=== PATIENT | female | born 1950 | race Caucasian/White ===

== ENCOUNTER 2023-01-18 17:13 | Inpatient (IN) | payer MEDICARE ==
[~2023-01-18] VITALS: Ht 157.5 cm; Wt 49.9 kg
[2023-01-18] MEDS ORDERED: OLANZAPINE 10 MG VIAL IM ONE ×2 (17:30→18:11)
[2023-01-18] MEDS ORDERED: INSU100I28 SQ (17:47)
[2023-01-18] MEDS ORDERED: CARV6.25 PO (17:47)
[2023-01-18] MEDS ORDERED: QUET25TA PO (17:47)
[2023-01-18] MEDS ORDERED: ACET-868 PO (17:47)
[2023-01-18] MEDS ORDERED: ACET650S11 RC (17:47)
[2023-01-18] MEDS ORDERED: IPRA3AMP22 IH (17:47)
[2023-01-18] MEDS ORDERED: CLON0.1T PO (17:47)
[2023-01-18] MEDS ORDERED: INSU100I30 SQ (17:47)
[2023-01-18] MEDS ORDERED: GLUC1KIT IM (17:47)
[2023-01-18] MEDS ORDERED: AMLO10TA4 PO (17:47)
[2023-01-18] MEDS ORDERED: ATRO2DRO4 SL (17:47)
[2023-01-18] MEDS ORDERED: ONDA8TAB65 PO (17:47)
[2023-01-18 18:30] LABS: BASOPHILS # (AUTO) 0.1 K/uL (0.0-0.2); BASOPHILS % (AUTO) 0.7 % (0.0-2.0); CALCIUM, SERUM 9.6 mg/dL (8.5-10.1); CARBON DIOXIDE 20 mmol/L (21-32); CHLORIDE 106 mmol/L (98-107); EOSINOPHILS # (AUTO) 0.4 K/uL (0.0-0.7); GLUCOSE 117 mg/dL (74-106); HEMATOCRIT 39 % (33-45); HEMOGLOBIN 12.9 g/dL (11.5-14.8); LYMPHOCYTES # (AUTO) 2.8 K/uL (0.8-4.8); LYMPHOCYTES % (AUTO) 22.4 % (20.0-44.0); MEAN CORPUSCULAR HEMOGLOBIN 31 PG (26.0-33.0); MEAN CORPUSCULAR HGB CONC 33 g/dl (31.0-36.0); MEAN CORPUSCULAR VOLUME 94 fL (82-100); MONOCYTES # (AUTO) 0.9 K/uL (0.1-1.30); MONOCYTES % (AUTO) 7.1 % (2.0-12.0); NEUTROPHILS # (AUTO) 8.3 K/uL (1.8-8.9); NEUTROPHILS % (AUTO) 66.8 % (43.0-81.0); PLATELET COUNT (AUTO) 342 K/uL (150-450); POTASSIUM 3.8 mmol/L (3.5-5.1); RED CELL DISTRIBUTION WIDTH 13.4 % (11.5-15.0); SODIUM SERUM 139 mmol/L (136-145); UREA NITROGEN, BLOOD 23 mg/dL (7-18); WHITE BLOOD COUNT (AUTO) 12.4 K/uL (4.3-11.0)
[2023-01-18 18:37] LABS: ALANINE AMINOTRANSFERASE 11 U/L (12-78); ALBUMIN 3.1 g/dL (3.4-5.0); ALKALINE PHOSPHATASE 117 U/L (46-116); ASPARTATE AMINOTRANSFERASE 15 U/L (15-37); BILIRUBIN,DIRECT 0.1 mg/dL (0.0-0.2); BILIRUBIN,TOTAL 0.2 mg/dL (0.2-1.0); TOTAL PROTEIN, SERUM 7.4 g/dL (6.4-8.2)
[2023-01-18 18:38] LABS: SALICYLATE < 2.3 mg/dL (2.8-20.0)
[2023-01-18 18:39] LABS: ACETAMINOPHEN <10 ug/ml (10-30); ALCOHOL, BLOOD < 3 mg/dL (0-10)
[2023-01-18 19:21] LABS: APPEARANCE,URINE CLOUDY (CLEAR); COLOR,URINE YELLOW (YELLOW)
[2023-01-18 19:22] LABS: PH,URINE 6.5 (5.0-8.0); PROTEIN,URINE 1+ mg/dl (NEGATIVE); UGLUCOSE NEGATIVE (NEGATIVE)
[2023-01-18 19:23] LABS: BILIRUBIN,URINE NEGATIVE (NEGATIVE); BLOOD, URINE 2+ Ery/uL (NEGATIVE); KETONES,URINE NEGATIVE (NEGATIVE); LEUKOCYTE ESTERASE ,URINE 3+ (NEGATIVE); NITRITE, URINE POSITIVE (NEGATIVE); UROBILINOGEN,URINE 0.2 EU/dL (0.2)
[2023-01-18 19:24] LABS: AMPHETAMINE, URINE NEGATIVE (NEGATIVE); BARBITURATE, URINE NEGATIVE (NEGATIVE); BENZODIAZEPINE, URINE NEGATIVE (NEGATIVE); CANNABINOID, URINE NEGATIVE (NEGATIVE); COCCAINE, URINE NEGATIVE (NEGATIVE); OPIATE, URINE NEGATIVE (NEGATIVE); PHENCYCLIDINE SCREEN,URINE NEGATIVE (NEGATIVE)
[2023-01-18 19:29] LABS: ADD URINE CULTURE YES; BACTERIA,URINE 3+ /HPF (None Seen); RBC,URINE 21-50 /HPF (0-2); SQUAMOUS EPITHELIAL CELL,UR 0-2 /HPF (None Seen); WBC,URINE 51-80 /HPF (0-3)
[2023-01-18] MEDS ORDERED: CEFTRIAXONE 1GM BAG (ER ONLY) 1 GM/50 ML PIGGYBACK IV ONE (20:00)
[2023-01-18 22:30] VITALS: BP 128/89; TEMP 97.4; O2SAT 98
[2023-01-18] MEDS ORDERED: MAGNESIUM HYDROXIDE 30 ML UDC PO PRN (23:00)
[2023-01-18] MEDS ORDERED: BLOOD SUGAR DIAGNOSTIC 1 EACH STRIP IN ONE (23:00)
[2023-01-18] MEDS ORDERED: MAG HYDROX/AL HYDROX/SIMETH 30 ML UDC PO PRN (23:00)
[2023-01-19] MEDS ORDERED: ACETAMINOPHEN 325 MG TABLET PO PRN (00:30)
[2023-01-19] MEDS ORDERED: DEXTROSE 50%-WATER 50 ML DISP.SYRIN IV PRN (00:30)
[2023-01-19] MEDS ORDERED: CLONIDINE HCL 0.1 MG TABLET PO PRN (00:30)
[2023-01-19] MEDS ORDERED: ACETAMINOPHEN 650 MG/SUPP.RECT RC PRN (00:30)
[2023-01-19] MEDS ORDERED: ATROPINE SULFATE OPHTH SOLN 15 ML BOTTLE SL PRN (00:30)
[2023-01-19] MEDS ORDERED: ONDANSETRON 4 MG TAB.RAPDIS PO PRN (01:00)
[2023-01-19] MEDS ORDERED: GLUCAGON,HUMAN RECOMBINANT 1 MG/VIAL VIAL IM PRN (07:30)
[2023-01-19] MEDS: ALBUTEROL FS 2.5 MG/0.5 ML VIAL.NEB NEB SCH ×3 (07:35→23:30)
[2023-01-19] MEDS: IPRATROPIUM NEB FS 0.5 MG/2.5 ML AMPUL.NEB IH SCH ×3 (07:35→23:30)
[2023-01-19] MEDS: BLOOD SUGAR DIAGNOSTIC 1 EACH STRIP VI SCH ×4 (07:49→21:49)
[2023-01-19 08:00] VITALS: BP 106/57; TEMP 98; O2SAT 97
[2023-01-19 08:10] LABS: CHOLESTEROL 203 mg/dL (<200); HDL CHOLESTEROL 33 mg/dL (40-60); LDL 132 mg/dL (0-99); TRIGLYCERIDES 180 mg/dL (30-150)
[2023-01-19] MEDS: CEPHALEXIN MONOHYDRATE 500 MG CAPSULE PO SCH ×2 (08:51→16:54)
[2023-01-19] MEDS: CARVEDILOL 6.25 MG TABLET PO SCH ×2 (08:52→20:30)
[2023-01-19] MEDS: AMLODIPINE BESYLATE 10 MG TABLET PO SCH (08:53)
[2023-01-19] MEDS ORDERED: Medication Not On Formulary EA (Ipratropium/Albuterol Sulfate (Ipratr-Albuterol 0.5-3 Mg IH SCH (09:00)
[2023-01-19 09:15] LABS: CREATININE 1.2 mg/dL (0.6-1.3)
[2023-01-19] MEDS: INSULIN REGULAR, HUMAN 100 UNIT/ML 3 ML VIAL SQ PRN (12:08)
[2023-01-19 16:00] VITALS: BP 148/67; TEMP 98.7; O2SAT 98
[2023-01-19 20:18] VITALS: BP 122/59; TEMP 98; O2SAT 98
[2023-01-19] MEDS: INSULIN GLARGINE, 100 UNIT/ML CARTRIDGE SQ SCH (21:53)
[2023-01-19] MEDS ORDERED: QUETIAPINE FUMARATE 25 MG TABLET PO SCH (22:00)
[2023-01-19] MEDS: LORAZEPAM 0.5 MG TABLET PO PRN (22:36)
[2023-01-20] MEDS: ALBUTEROL FS 2.5 MG/0.5 ML VIAL.NEB NEB SCH ×3 (07:35→23:21)
[2023-01-20] MEDS: IPRATROPIUM NEB FS 0.5 MG/2.5 ML AMPUL.NEB IH SCH ×3 (07:35→23:21)
[2023-01-20] MEDS: BLOOD SUGAR DIAGNOSTIC 1 EACH STRIP VI SCH ×4 (07:58→21:46)
[2023-01-20 08:00] VITALS: BP 94/53; TEMP 98.7; O2SAT 97
[2023-01-20] MEDS: INSULIN REGULAR, HUMAN 100 UNIT/ML 3 ML VIAL SQ PRN ×3 (08:00→17:10)
[2023-01-20] MEDS: CEPHALEXIN MONOHYDRATE 500 MG CAPSULE PO SCH ×2 (08:46→17:10)
[2023-01-20] MEDS: CARVEDILOL 6.25 MG TABLET PO SCH ×2 (08:46→21:44)
[2023-01-20] MEDS: AMLODIPINE BESYLATE 10 MG TABLET PO SCH (08:46)
[2023-01-20] MEDS: ACETAMINOPHEN 325 MG TABLET PO PRN (14:41)
[2023-01-20] MEDS: LORAZEPAM 0.5 MG TABLET PO PRN (14:41)
[2023-01-20 16:00] VITALS: BP 114/63; TEMP 98.1; O2SAT 98
[2023-01-20 20:00] VITALS: BP 137/75; TEMP 98.3; O2SAT 98
[2023-01-20] MEDS: QUETIAPINE FUMARATE 25 MG TABLET PO SCH (21:46)
[2023-01-20] MEDS: INSULIN GLARGINE, 100 UNIT/ML CARTRIDGE SQ SCH (21:46)
[2023-01-21] MEDS: ALBUTEROL FS 2.5 MG/0.5 ML VIAL.NEB NEB SCH ×3 (07:27→23:30)
[2023-01-21] MEDS: IPRATROPIUM NEB FS 0.5 MG/2.5 ML AMPUL.NEB IH SCH ×3 (07:27→23:30)
[2023-01-21] MEDS: BLOOD SUGAR DIAGNOSTIC 1 EACH STRIP VI SCH ×4 (07:35→21:30)
[2023-01-21 08:00] VITALS: BP 130/62; TEMP 98.2; O2SAT 98
[2023-01-21] MEDS: AMLODIPINE BESYLATE 10 MG TABLET PO SCH (08:11)
[2023-01-21] MEDS: CARVEDILOL 6.25 MG TABLET PO SCH ×2 (08:11→20:41)
[2023-01-21] MEDS: CEPHALEXIN MONOHYDRATE 500 MG CAPSULE PO SCH ×2 (08:11→16:31)
[2023-01-21] MEDS: INSULIN REGULAR, HUMAN 100 UNIT/ML 3 ML VIAL SQ PRN (12:09)
[2023-01-21 16:00] VITALS: BP 123/93; TEMP 97.9; O2SAT 99
[2023-01-21 19:58] VITALS: BP 130/88; TEMP 97.6; O2SAT 97
[2023-01-21] MEDS: QUETIAPINE FUMARATE 25 MG TABLET PO SCH (21:29)
[2023-01-21] MEDS: INSULIN GLARGINE, 100 UNIT/ML CARTRIDGE SQ SCH (21:30)
[2023-01-21] MEDS: *INSULIN REGULAR(HUMULIN R)HUM 100 UNIT/ML VIAL SQ PRN (21:34)
[2023-01-22] MEDS ORDERED: Z GUARD REMEDY 4 OZ OINT TP PRN (06:00)
[2023-01-22] MEDS: BLOOD SUGAR DIAGNOSTIC 1 EACH STRIP VI SCH ×4 (06:41→22:05)
[2023-01-22] MEDS: IPRATROPIUM NEB FS 0.5 MG/2.5 ML AMPUL.NEB IH SCH ×3 (07:35→23:18)
[2023-01-22] MEDS: ALBUTEROL FS 2.5 MG/0.5 ML VIAL.NEB NEB SCH ×3 (07:35→23:18)
[2023-01-22 08:00] VITALS: BP 109/50; TEMP 98.2; O2SAT 98
[2023-01-22] MEDS: CARVEDILOL 6.25 MG TABLET PO SCH ×2 (08:37→21:16)
[2023-01-22] MEDS: CEPHALEXIN MONOHYDRATE 500 MG CAPSULE PO SCH ×2 (08:37→16:43)
[2023-01-22] MEDS: AMLODIPINE BESYLATE 10 MG TABLET PO SCH (08:38)
[2023-01-22] MEDS: Z GUARD REMEDY 4 OZ OINT TP SCH (09:09)
[2023-01-22 16:00] VITALS: BP 129/85; TEMP 98.9; O2SAT 100
[2023-01-22] MEDS: INSULIN REGULAR, HUMAN 100 UNIT/ML 3 ML VIAL SQ PRN (16:57)
[2023-01-22 20:00] VITALS: BP 121/58; TEMP 97.7; O2SAT 98
[2023-01-22 22:00] VITALS: BP 149/70
[2023-01-22] MEDS: INSULIN GLARGINE, 100 UNIT/ML CARTRIDGE SQ SCH (22:07)
[2023-01-22] MEDS: *INSULIN REGULAR(HUMULIN R)HUM 100 UNIT/ML VIAL SQ PRN (22:10)
[2023-01-22] MEDS: QUETIAPINE FUMARATE 25 MG TABLET PO SCH (22:12)
[2023-01-23] MEDS: BLOOD SUGAR DIAGNOSTIC 1 EACH STRIP VI SCH ×4 (07:33→21:23)
[2023-01-23] MEDS: ALBUTEROL FS 2.5 MG/0.5 ML VIAL.NEB NEB SCH ×3 (07:35→23:30)
[2023-01-23] MEDS: IPRATROPIUM NEB FS 0.5 MG/2.5 ML AMPUL.NEB IH SCH ×3 (07:35→23:30)
[2023-01-23 08:00] VITALS: BP 129/65; TEMP 98; O2SAT 96
[2023-01-23] MEDS: CEPHALEXIN MONOHYDRATE 500 MG CAPSULE PO SCH (08:49)
[2023-01-23] MEDS: AMLODIPINE BESYLATE 10 MG TABLET PO SCH (08:49)
[2023-01-23] MEDS: CARVEDILOL 6.25 MG TABLET PO SCH ×2 (08:49→20:20)
[2023-01-23] MEDS: Z GUARD REMEDY 4 OZ OINT TP SCH (08:50)
[2023-01-23] MEDS: INSULIN REGULAR, HUMAN 100 UNIT/ML 3 ML VIAL SQ PRN (11:55)
[2023-01-23 16:00] VITALS: BP 131/62; TEMP 97.6; O2SAT 96
[2023-01-23 20:00] VITALS: BP 120/71; TEMP 98.2; O2SAT 98
[2023-01-23] MEDS: QUETIAPINE FUMARATE 25 MG TABLET PO SCH (21:23)
[2023-01-23] MEDS: INSULIN GLARGINE, 100 UNIT/ML CARTRIDGE SQ SCH (21:23)
[2023-01-24] MEDS: ALBUTEROL FS 2.5 MG/0.5 ML VIAL.NEB NEB SCH ×3 (07:35→23:30)
[2023-01-24] MEDS: IPRATROPIUM NEB FS 0.5 MG/2.5 ML AMPUL.NEB IH SCH ×3 (07:35→23:30)
[2023-01-24] MEDS: BLOOD SUGAR DIAGNOSTIC 1 EACH STRIP VI SCH ×5 (07:52→21:21)
[2023-01-24 08:00] VITALS: BP 132/64; TEMP 97.8; O2SAT 100
[2023-01-24] MEDS: AMLODIPINE BESYLATE 10 MG TABLET PO SCH (08:25)
[2023-01-24] MEDS: CARVEDILOL 6.25 MG TABLET PO SCH ×2 (08:26→21:12)
[2023-01-24] MEDS: Z GUARD REMEDY 4 OZ OINT TP SCH (08:37)
[2023-01-24] MEDS: INSULIN REGULAR, HUMAN 100 UNIT/ML 3 ML VIAL SQ PRN (11:19)
[2023-01-24 16:00] VITALS: BP 103/59; TEMP 98.1; O2SAT 96
[2023-01-24 20:00] VITALS: BP 113/93; TEMP 97.7; O2SAT 97
[2023-01-24] MEDS: QUETIAPINE FUMARATE 25 MG TABLET PO SCH (21:12)
[2023-01-24] MEDS: TEMAZEPAM 7.5 MG CAPSULE PO PRN (21:46)
[2023-01-24] MEDS: INSULIN GLARGINE, 100 UNIT/ML CARTRIDGE SQ SCH (22:12)
[2023-01-24] MEDS: *INSULIN REGULAR(HUMULIN R)HUM 100 UNIT/ML VIAL SQ PRN (22:16)
[2023-01-25] MEDS: IPRATROPIUM NEB FS 0.5 MG/2.5 ML AMPUL.NEB IH SCH ×3 (07:35→23:30)
[2023-01-25] MEDS: ALBUTEROL FS 2.5 MG/0.5 ML VIAL.NEB NEB SCH ×3 (07:35→23:30)
[2023-01-25] MEDS: BLOOD SUGAR DIAGNOSTIC 1 EACH STRIP VI SCH ×4 (07:44→21:01)
[2023-01-25 08:00] VITALS: BP 101/52; TEMP 97.7; O2SAT 98
[2023-01-25] MEDS: CARVEDILOL 6.25 MG TABLET PO SCH ×2 (08:32→20:39)
[2023-01-25] MEDS: Z GUARD REMEDY 4 OZ OINT TP SCH (08:34)
[2023-01-25] MEDS: AMLODIPINE BESYLATE 10 MG TABLET PO SCH (08:35)
[2023-01-25] MEDS: DIVALPROEX SODIUM 125 MG CAP.SPRINK PO SCH ×2 (14:06→20:39)
[2023-01-25] MEDS: QUETIAPINE FUMARATE 25 MG TABLET PO SCH ×3 (14:06→21:01)
[2023-01-25 16:00] VITALS: BP 117/76; TEMP 98.7; O2SAT 96
[2023-01-25] MEDS: INSULIN REGULAR, HUMAN 100 UNIT/ML 3 ML VIAL SQ PRN (18:12)
[2023-01-25 20:49] VITALS: BP 129/64; TEMP 98.2; O2SAT 96
[2023-01-25] MEDS: INSULIN GLARGINE, 100 UNIT/ML CARTRIDGE SQ SCH (21:57)
[2023-01-26] MEDS: IPRATROPIUM NEB FS 0.5 MG/2.5 ML AMPUL.NEB IH SCH ×3 (07:05→23:30)
[2023-01-26] MEDS: ALBUTEROL FS 2.5 MG/0.5 ML VIAL.NEB NEB SCH ×3 (07:05→23:30)
[2023-01-26 08:00] VITALS: BP 107/54; TEMP 98.7; O2SAT 97
[2023-01-26] MEDS: BLOOD SUGAR DIAGNOSTIC 1 EACH STRIP VI SCH ×4 (08:03→22:00)
[2023-01-26] MEDS: QUETIAPINE FUMARATE 25 MG TABLET PO SCH ×3 (08:08→21:16)
[2023-01-26] MEDS: DIVALPROEX SODIUM 125 MG CAP.SPRINK PO SCH ×2 (08:08→21:15)
[2023-01-26] MEDS: AMLODIPINE BESYLATE 10 MG TABLET PO SCH (08:09)
[2023-01-26] MEDS: CARVEDILOL 6.25 MG TABLET PO SCH ×2 (08:09→21:15)
[2023-01-26] MEDS: Z GUARD REMEDY 4 OZ OINT TP SCH (08:10)
[2023-01-26] MEDS: *INSULIN REGULAR(HUMULIN R)HUM 100 UNIT/ML VIAL SQ PRN ×3 (12:08→22:06)
[2023-01-26 16:00] VITALS: BP 121/60; TEMP 97.7; O2SAT 97
[2023-01-26 16:07] VITALS: BP 121/60; TEMP 97.7; O2SAT 97
[2023-01-26 20:28] VITALS: BP 117/56; TEMP 98.4; O2SAT 99
[2023-01-26] MEDS: TEMAZEPAM 7.5 MG CAPSULE PO PRN (22:00)
[2023-01-26] MEDS: INSULIN GLARGINE, 100 UNIT/ML CARTRIDGE SQ SCH (22:05)
[2023-01-27] MEDS: ALBUTEROL FS 2.5 MG/0.5 ML VIAL.NEB NEB SCH ×3 (07:35→23:30)
[2023-01-27] MEDS: IPRATROPIUM NEB FS 0.5 MG/2.5 ML AMPUL.NEB IH SCH ×3 (07:35→23:30)
[2023-01-27 08:00] VITALS: BP 100/47; TEMP 98.7; O2SAT 98
[2023-01-27] MEDS: BLOOD SUGAR DIAGNOSTIC 1 EACH STRIP VI SCH ×4 (08:24→21:39)
[2023-01-27] MEDS: DIVALPROEX SODIUM 125 MG CAP.SPRINK PO SCH ×2 (08:24→21:27)
[2023-01-27] MEDS: CARVEDILOL 6.25 MG TABLET PO SCH ×2 (08:24→21:27)
[2023-01-27] MEDS: AMLODIPINE BESYLATE 10 MG TABLET PO SCH (08:25)
[2023-01-27] MEDS: Z GUARD REMEDY 4 OZ OINT TP SCH (08:27)
[2023-01-27] MEDS: QUETIAPINE FUMARATE 25 MG TABLET PO SCH ×3 (08:27→21:27)
[2023-01-27] MEDS: ACETAMINOPHEN 325 MG TABLET PO PRN (09:12)
[2023-01-27] MEDS: CLOTRIMAZOLE 1% 15 GM TUBE TP SCH ×2 (09:32→16:23)
[2023-01-27] MEDS: LORAZEPAM 0.5 MG TABLET PO PRN (09:45)
[2023-01-27 16:00] VITALS: BP 123/63; TEMP 97.7; O2SAT 97
[2023-01-27] MEDS: INSULIN REGULAR, HUMAN 100 UNIT/ML 3 ML VIAL SQ PRN (16:56)
[2023-01-27 21:03] VITALS: BP 123/61; TEMP 98.3; O2SAT 96
[2023-01-27] MEDS: TEMAZEPAM 7.5 MG CAPSULE PO PRN (21:27)
[2023-01-27] MEDS: INSULIN GLARGINE, 100 UNIT/ML CARTRIDGE SQ SCH (21:43)
[2023-01-28] MEDS: BLOOD SUGAR DIAGNOSTIC 1 EACH STRIP VI SCH ×4 (07:31→21:37)
[2023-01-28] MEDS: IPRATROPIUM NEB FS 0.5 MG/2.5 ML AMPUL.NEB IH SCH ×3 (07:35→23:26)
[2023-01-28] MEDS: ALBUTEROL FS 2.5 MG/0.5 ML VIAL.NEB NEB SCH ×3 (07:35→23:26)
[2023-01-28 08:00] VITALS: BP_SYST 122; BP_SYST 128; BP_DIAS 65; TEMP 97.8; O2SAT 96
[2023-01-28] MEDS: QUETIAPINE FUMARATE 25 MG TABLET PO SCH ×3 (08:36→21:29)
[2023-01-28] MEDS: DIVALPROEX SODIUM 125 MG CAP.SPRINK PO SCH ×3 (08:36→21:29)
[2023-01-28] MEDS: AMLODIPINE BESYLATE 10 MG TABLET PO SCH (08:36)
[2023-01-28] MEDS: CARVEDILOL 6.25 MG TABLET PO SCH ×2 (08:36→21:29)
[2023-01-28] MEDS: Z GUARD REMEDY 4 OZ OINT TP SCH (09:51)
[2023-01-28] MEDS: CLOTRIMAZOLE 1% 15 GM TUBE TP SCH ×2 (09:51→16:25)
[2023-01-28] MEDS: INSULIN REGULAR, HUMAN 100 UNIT/ML 3 ML VIAL SQ PRN (12:17)
[2023-01-28 16:00] VITALS: BP 111/53; TEMP 97.8; O2SAT 97
[2023-01-28 20:00] VITALS: BP 132/71; TEMP 98.2; O2SAT 97
[2023-01-28] MEDS: INSULIN GLARGINE, 100 UNIT/ML CARTRIDGE SQ SCH (21:39)
[2023-01-28] MEDS: *INSULIN REGULAR(HUMULIN R)HUM 100 UNIT/ML VIAL SQ PRN (21:43)
[2023-01-29] MEDS: IPRATROPIUM NEB FS 0.5 MG/2.5 ML AMPUL.NEB IH SCH ×3 (07:35→22:32)
[2023-01-29] MEDS: ALBUTEROL FS 2.5 MG/0.5 ML VIAL.NEB NEB SCH ×3 (07:35→22:33)
[2023-01-29] MEDS: BLOOD SUGAR DIAGNOSTIC 1 EACH STRIP VI SCH ×4 (07:52→21:54)
[2023-01-29 08:00] VITALS: BP 109/69; TEMP 97.8; O2SAT 94
[2023-01-29] MEDS: CLOTRIMAZOLE 1% 15 GM TUBE TP SCH ×2 (08:23→16:56)
[2023-01-29] MEDS: Z GUARD REMEDY 4 OZ OINT TP SCH (08:23)
[2023-01-29] MEDS: DIVALPROEX SODIUM 125 MG CAP.SPRINK PO SCH ×3 (08:25→20:59)
[2023-01-29] MEDS: AMLODIPINE BESYLATE 10 MG TABLET PO SCH (08:25)
[2023-01-29] MEDS: QUETIAPINE FUMARATE 25 MG TABLET PO SCH ×3 (08:25→20:59)
[2023-01-29] MEDS: CARVEDILOL 6.25 MG TABLET PO SCH ×2 (08:26→20:58)
[2023-01-29 11:30] LABS: BASOPHILS # (AUTO) 0.1 K/uL (0.0-0.2); BASOPHILS % (AUTO) 0.8 % (0.0-2.0); EOSINOPHILS # (AUTO) 0.4 K/uL (0.0-0.7); HEMATOCRIT 39 % (33-45); HEMOGLOBIN 13.1 g/dL (11.5-14.8); LYMPHOCYTES # (AUTO) 2.6 K/uL (0.8-4.8); LYMPHOCYTES % (AUTO) 27.1 % (20.0-44.0); MEAN CORPUSCULAR HEMOGLOBIN 31 PG (26.0-33.0); MEAN CORPUSCULAR HGB CONC 34 g/dl (31.0-36.0); MEAN CORPUSCULAR VOLUME 91 fL (82-100); MONOCYTES # (AUTO) 0.9 K/uL (0.1-1.30); MONOCYTES % (AUTO) 8.9 % (2.0-12.0); NEUTROPHILS # (AUTO) 5.8 K/uL (1.8-8.9); NEUTROPHILS % (AUTO) 59.2 % (43.0-81.0); PLATELET COUNT (AUTO) 317 K/uL (150-450); RED BLOOD CELL COUNT(AUTO) 4.29 MIL/uL (4.0-5.2); RED CELL DISTRIBUTION WIDTH 13.1 % (11.5-15.0); WHITE BLOOD COUNT (AUTO) 9.8 K/uL (4.3-11.0)
[2023-01-29] MEDS: INSULIN REGULAR, HUMAN 100 UNIT/ML 3 ML VIAL SQ PRN (12:34)
[2023-01-29 16:00] VITALS: BP 146/74; TEMP 97.9; O2SAT 100
[2023-01-29 21:27] VITALS: BP 111/52; TEMP 98.6; O2SAT 98
[2023-01-29] MEDS: INSULIN GLARGINE, 100 UNIT/ML CARTRIDGE SQ SCH (21:54)
[2023-01-30] MEDS ORDERED: ALBUTEROL FS 2.5 MG/0.5 ML VIAL.NEB NEB PRN (01:00)
[2023-01-30] MEDS ORDERED: IPRATROPIUM NEB FS 0.5 MG/2.5 ML AMPUL.NEB IH PRN (01:00)
[2023-01-30] MEDS: BLOOD SUGAR DIAGNOSTIC 1 EACH STRIP VI SCH ×4 (07:41→22:11)
[2023-01-30 07:50] LABS: VALPROIC ACID 47 ug/mL (50-100)
[2023-01-30 07:51] LABS: ALANINE AMINOTRANSFERASE 13 U/L (12-78); ALBUMIN 2.8 g/dL (3.4-5.0); ALKALINE PHOSPHATASE 91 U/L (46-116); ASPARTATE AMINOTRANSFERASE 18 U/L (15-37); BILIRUBIN,TOTAL 0.3 mg/dL (0.2-1.0); CARBON DIOXIDE 27 mmol/L (21-32); CHLORIDE 107 mmol/L (98-107); GLUCOSE 92 mg/dL (74-106); POTASSIUM 4.4 mmol/L (3.5-5.1); SODIUM SERUM 140 mmol/L (136-145); TOTAL PROTEIN, SERUM 6.8 g/dL (6.4-8.2); UREA NITROGEN, BLOOD 28 mg/dL (7-18)
[2023-01-30 08:00] VITALS: BP 100/68; TEMP 97.6; O2SAT 100
[2023-01-30] MEDS: CARVEDILOL 6.25 MG TABLET PO SCH ×2 (08:09→21:03)
[2023-01-30] MEDS: AMLODIPINE BESYLATE 10 MG TABLET PO SCH (08:09)
[2023-01-30] MEDS: CLOTRIMAZOLE 1% 15 GM TUBE TP SCH ×2 (08:10→16:18)
[2023-01-30] MEDS: Z GUARD REMEDY 4 OZ OINT TP SCH (08:11)
[2023-01-30] MEDS: QUETIAPINE FUMARATE 25 MG TABLET PO SCH ×3 (08:12→21:04)
[2023-01-30] MEDS: DIVALPROEX SODIUM 125 MG CAP.SPRINK PO SCH ×3 (08:12→21:03)
[2023-01-30] MEDS: INSULIN REGULAR, HUMAN 100 UNIT/ML 3 ML VIAL SQ PRN (12:39)
[2023-01-30 16:00] VITALS: BP 118/68; TEMP 97.9; O2SAT 95
[2023-01-30 20:00] VITALS: BP 108/71; TEMP 97.8; O2SAT 98
[2023-01-30] MEDS: INSULIN GLARGINE, 100 UNIT/ML CARTRIDGE SQ SCH (22:00)
[2023-01-31] MEDS: BLOOD SUGAR DIAGNOSTIC 1 EACH STRIP VI SCH ×4 (07:46→21:28)
[2023-01-31 08:00] VITALS: BP 116/52; TEMP 97.8; O2SAT 98
[2023-01-31] MEDS: CARVEDILOL 6.25 MG TABLET PO SCH ×2 (08:56→21:08)
[2023-01-31] MEDS: QUETIAPINE FUMARATE 25 MG TABLET PO SCH ×3 (08:56→21:07)
[2023-01-31] MEDS: DIVALPROEX SODIUM 125 MG CAP.SPRINK PO SCH ×3 (08:56→21:07)
[2023-01-31] MEDS: AMLODIPINE BESYLATE 10 MG TABLET PO SCH (08:57)
[2023-01-31] MEDS: CLOTRIMAZOLE 1% 15 GM TUBE TP SCH ×2 (09:07→17:29)
[2023-01-31] MEDS: Z GUARD REMEDY 4 OZ OINT TP SCH (09:09)
[2023-01-31 16:00] VITALS: BP 146/67; TEMP 97.3; O2SAT 97
[2023-01-31] MEDS: INSULIN REGULAR, HUMAN 100 UNIT/ML 3 ML VIAL SQ PRN (21:27)
[2023-01-31] MEDS: INSULIN GLARGINE, 100 UNIT/ML CARTRIDGE SQ SCH (21:28)
[2023-02-01] MEDS: TEMAZEPAM 7.5 MG CAPSULE PO PRN (00:51)
[2023-02-01] MEDS: BLOOD SUGAR DIAGNOSTIC 1 EACH STRIP VI SCH ×2 (07:30→11:34)
[2023-02-01 08:00] VITALS: BP 113/58; TEMP 97.9; O2SAT 97
[2023-02-01] MEDS: CLOTRIMAZOLE 1% 15 GM TUBE TP SCH (09:00)
[2023-02-01] MEDS: Z GUARD REMEDY 4 OZ OINT TP SCH (09:00)
[2023-02-01] MEDS: DIVALPROEX SODIUM 125 MG CAP.SPRINK PO SCH (09:24)
[2023-02-01 09:25] VITALS: BP 113/58
[2023-02-01] MEDS: QUETIAPINE FUMARATE 25 MG TABLET PO SCH (09:25)
[2023-02-01] MEDS: AMLODIPINE BESYLATE 10 MG TABLET PO SCH (09:25)
[2023-02-01] MEDS: CARVEDILOL 6.25 MG TABLET PO SCH (09:25)
[2023-02-01] MEDS: *INSULIN REGULAR(HUMULIN R)HUM 100 UNIT/ML VIAL SQ PRN (11:40)
== END 2023-02-01 14:30 | DRG 885 ==
LOC: ER 17:23 → GPS 20:35
PROVIDERS: ADMIT Psychiatry & Neurology Psychosomatic Medicine; ATTEND Internal Medicine
DX: F20.9 Schizophrenia, unspecified (principal); E44.1 Mild protein-calorie malnutrition; F03.93 Unspecified dementia, unspecified severity, with mood disturbance; F03.92 Unspecified dementia, unspecified severity, with psychotic disturbance; F29 Unspecified psychosis not due to a substance or known physiological condition; E11.9 Type 2 diabetes mellitus without complications; E86.0 Dehydration; I10 Essential (primary) hypertension; Z86.73 Personal history of transient ischemic attack (TIA), and cerebral infarction without residual deficits; Z79.4 Long term (current) use of insulin; Z79.51 Long term (current) use of inhaled steroids; Z79.899 Other long term (current) drug therapy; Z73.6 Limitation of activities due to disability; R47.02 Dysphasia
CPT/HCPCS: 36415; 80048-TC; 80053-TC; 80061-TC; 80076-TC; 80164-TC; 81001; 82565-TC; 82962-TC; 83605-TC; 84443-TC; 85025-TC; 87040-TC; 87081-TC; 87086-TC; 92526; 92611-TC; 97110-TC; 97530-TC; G0480; J1815; J3490